=== PATIENT | female | born 1970 | race Caucasian/White ===

== ENCOUNTER → 2017-03-19 | Outpatient (CLI) | payer OTHER | END | disposition home or self-care (01) | LOC: STAR 14:26 | PROVIDERS: ATTEND Obstetrics & Gynecology Maternal & Fetal Medicine | DX: Z01.818 Encounter for other preprocedural examination (principal); R10.2 Pelvic and perineal pain | CPT/HCPCS: 36415; 81001; 84703; 85025; 87086 ==

== ENCOUNTER 2017-03-24 12:16 | Observation (INO) | payer OTHER ==
[~2017-03-24] VITALS: Ht 157.5 cm; Wt 81.0 kg
[2017-03-24] MEDS ORDERED: LACTATED RINGERS 1,000 ML IV SCH (12:41)
[2017-03-24 12:42] VITALS: BP 127/83
[2017-03-24] MEDS ORDERED: NO MEDS PER PT (12:42)
[2017-03-24 13:26] LABS: HCG UR OBC PASS
[2017-03-24] MEDS ORDERED: BUPIVACAINE/PF-EPI 0.25% 1:200K ONE (14:44)
[2017-03-24] MEDS ORDERED: BUPIVACAINE/PF-EPI 0.5% 1:200K ONE (14:44)
[2017-03-24] MEDS ORDERED: FENTANYL PF 250 MCG/5ML ONE (15:19)
[2017-03-24] MEDS ORDERED: MIDAZOLAM 1 MG/ML, 2ML ONE (15:20)
[2017-03-24] MEDS ORDERED: CEFOTETAN 2 GM ONE (15:26)
[2017-03-24] MEDS ORDERED: ROCURONIUM 10 MG/ML ONE (15:26)
[2017-03-24] MEDS ORDERED: ESMOLOL 100 MG/10 ML ONE (15:26)
[2017-03-24] MEDS ORDERED: PROPOFOL 10 MG/ML, 20ML ONE (15:26)
[2017-03-24] MEDS ORDERED: ONDANSETRON 2MG/ML, 2ML ONE (15:26)
[2017-03-24] MEDS ORDERED: DEXAMETHASONE 4 MG/ML, 1ML ONE (15:26)
[2017-03-24] MEDS ORDERED: METOPROLOL 1 MG/ML, 5ML ONE (15:26)
[2017-03-24] MEDS ORDERED: GLYCOPYRROLATE 0.2MG/1ML ONE (15:26)
[2017-03-24] MEDS ORDERED: SUCCINYLCHOLINE 20 MG/ML, 10ML ONE (15:26)
[2017-03-24] MEDS ORDERED: FENTANYL PF 100 MCG/2ML ONE (17:25)
[2017-03-24] MEDS ORDERED: OXYcodone 5 MG/5 ML ORAL.SOL UDC ONE (17:25)
[2017-03-24] MEDS ORDERED: OXYcodone 5 MG/5 ML ORAL.SOL UDC PO PRN (17:30)
[2017-03-24] MEDS ORDERED: MEPERIDINE/PF 25MG/0.5ML IVPush PRN (17:30)
[2017-03-24] MEDS ORDERED: hydrALAzine 20 MG/ML, 1ML IV PRN (17:30)
[2017-03-24] MEDS ORDERED: LABETALOL 5MG/ML, 20ML IV PRN (17:30)
[2017-03-24] MEDS ORDERED: FENTANYL PF 100 MCG/2ML IV PRN (17:30)
[2017-03-24] MEDS ORDERED: HYDROmorphone 1 MG/ML, 1ML IV PRN (17:30)
[2017-03-24] MEDS ORDERED: METOCLOPRAMIDE 5 MG/ML, 2ML IV PRN (17:30)
[2017-03-24] MEDS ORDERED: ACETAMINOPHEN 325 MG TABLET PO PRN (17:30)
[2017-03-24] MEDS ORDERED: ONDANSETRON 2MG/ML, 2ML IVPush PRN ×2 (17:30→20:00)
[2017-03-24] MEDS ORDERED: PROMETHAZINE 25 MG/ML, 1ML IV PRN (17:30)
[2017-03-24] MEDS ORDERED: MIDAZOLAM 1 MG/ML, 2ML IV PRN (17:30)
[2017-03-24 19:30] VITALS: BP 123/73
[2017-03-24] MEDS ORDERED: morphine SULFATE 10 MG/ML, 1ML IVPush PRN ×2 (20:00→21:00)
[2017-03-24] MEDS ORDERED: IBUPROFEN 200 MG TABLET PO PRN (20:00)
[2017-03-24] MEDS: HYDROcodone/APAP 5/325 TABLET PO PRN (22:28)
[2017-03-24 23:59] VITALS: BP 117/71
[2017-03-25] MEDS: D5%-0.45NACL+KCL 20MEQ 1,000 ML IV SCH ×2 (02:57→03:52)
[2017-03-25] MEDS ORDERED: CEFOTETAN PMX 2GM/50ML 50 ML IVPB ONE (03:00)
[2017-03-25 03:11] VITALS: BP 95/61
[2017-03-25] MEDS: HYDROcodone/APAP 5/325 TABLET PO PRN (05:50)
[2017-03-25 08:35] VITALS: BP 97/59
[2017-03-25] MEDS ORDERED: HYDR-3240 PO (09:45)
== END 2017-03-25 10:25 | disposition home or self-care (01) ==
LOC: OUT 12:16 → MERGE 14:30 → 4NOR 18:09 → OUT 18:15 → 4NOR 18:16 → DCLOUNGE 03-25 10:13
PROVIDERS: ADMIT Surgery; ATTEND Surgery
DX: N80.9 Endometriosis, unspecified (principal); N73.6 Female pelvic peritoneal adhesions (postinfective); K66.8 Other specified disorders of peritoneum; N85.6 Intrauterine synechiae; Z80.3 Family history of malignant neoplasm of breast
CPT/HCPCS: 36415; 44970; 58661; 81025; 85025; 88302; 88305; 96365; 96375; G0378; J0330; J1100; J1170; J2250; J2405; J2704; J3010; J3480; S0074; 88304; J3490

== ENCOUNTER 2017-04-11 14:12 | Observation (INO) | payer OTHER ==
[~2017-04-11] VITALS: Ht 157.5 cm; Wt 74.2 kg
[~2017-04-11 14:12] MED LIST: HYDR-3240 PO; NO MEDS PER PT
[2017-04-11] MEDS ORDERED: HYDROmorphone 1 MG/ML, 1ML ONE (14:23)
[2017-04-11] MEDS ORDERED: ONDANSETRON 2MG/ML, 2ML ONE (14:23)
[2017-04-11] MEDS: HYDROmorphone 1 MG/ML, 1ML IVPush PRN ×2 (14:29→22:57)
[2017-04-11] MEDS ORDERED: ONDANSETRON 2MG/ML, 2ML IVPush ONE (14:30)
[2017-04-11] MEDS ORDERED: SODIUM CHLORIDE FLUSH 10ML SYR IVF ONE (14:30)
[2017-04-11] MEDS ORDERED: SODIUM CHLORIDE 0.9% 1,000ML IVBOLUS ONE (14:30)
[2017-04-11 14:44] LABS: BLOOD UREA NITROGEN 9 mg/dL (7-18)
[2017-04-11 14:51] LABS: ASPARTATE AMINO TRANSFERASE 13 U/L (15-37)
[2017-04-11] MEDS ORDERED: OMNIPAQUE 350 MG/ML, 100ML BOTTLE ONE (15:37)
[2017-04-11] MEDS ORDERED: ACET1TAB64 PO (17:13)
[2017-04-11] MEDS ORDERED: NITROGLYCERIN OINT 2%, 1GM TP ONE (17:30)
[2017-04-11] MEDS ORDERED: LEVOFLOXACIN/PMX 750MG/150ML 150 ML IV ONE (17:30)
[2017-04-11] MEDS ORDERED: METRONIDAZOLE PMX 500MG/100ML 100 ML IV ONE (17:30)
[2017-04-11] MEDS ORDERED: LEVOFLOXACIN/PMX 750MG/150ML 150 ML ONE (17:37)
[2017-04-11] MEDS ORDERED: METRONIDAZOLE PMX 500MG/100ML 100 ML ONE (17:37)
[2017-04-11] MEDS ORDERED: PROMETHAZINE 12.5 MG SUPP PR ONE (19:00)
[2017-04-11] MEDS ORDERED: ONDANSETRON 2MG/ML, 2ML IVPush PRN (19:00)
[2017-04-11] MEDS ORDERED: HYDROcodone/APAP 5/325 TABLET PO PRN (19:00)
[2017-04-11] MEDS ORDERED: MORPHINE SULFATE 4 MG/ML, 1ML ONE (19:57)
[2017-04-11 20:00] VITALS: BP 116/76
[2017-04-11 23:14] VITALS: BP 116/76
[2017-04-12] MEDS: LACTATED RINGERS 1,000 ML IV SCH ×3 (00:50→21:52)
[2017-04-12] MEDS: morphine SULFATE 10 MG/ML, 1ML IVPush PRN ×5 (00:50→21:51)
[2017-04-12 01:48] VITALS: BP 85/53
[2017-04-12 01:55] VITALS: BP 96/60
[2017-04-12] MEDS: METRONIDAZOLE PMX 500MG/100ML 100 ML IV SCH ×3 (02:03→18:24)
[2017-04-12 03:12] VITALS: BP 111/72
[2017-04-12 07:10] VITALS: BP 97/62
[2017-04-12] MEDS ORDERED: MIDAZOLAM 1 MG/ML, 5ML ONE (11:36)
[2017-04-12] MEDS ORDERED: NALOXONE 1 MG/ML, 2ML ONE (11:36)
[2017-04-12] MEDS ORDERED: FLUMAZENIL 0.1 MG/1 ML, 5ML ONE (11:36)
[2017-04-12] MEDS ORDERED: FENTANYL PF 100 MCG/2ML ONE (11:36)
[2017-04-12 13:20] VITALS: BP 119/70
[2017-04-12] MEDS ORDERED: LEVOFLOXACIN/PMX 500MG/100ML 100 ML IV SCH (17:30)
[2017-04-12 19:28] VITALS: BP 101/66
[2017-04-13] MEDS: METRONIDAZOLE PMX 500MG/100ML 100 ML IV SCH ×2 (01:27→10:07)
[2017-04-13 02:20] VITALS: BP 101/69
[2017-04-13 08:30] VITALS: BP 118/81
[2017-04-13] MEDS ORDERED: POLYETHYLENE GLYCOL 17 GM PACKET NG ONE (09:00)
[2017-04-13] MEDS: LACTATED RINGERS 1,000 ML IV SCH ×2 (10:07→15:20)
[2017-04-13] MEDS ORDERED: METR500T PO (14:34)
[2017-04-13] MEDS ORDERED: LEVO500T8 PO (14:34)
[2017-04-13] MEDS ORDERED: NAPR500T3 PO (14:35)
[2017-04-13 16:44] VITALS: BP 134/84
== END 2017-04-13 17:30 | disposition home or self-care (01) ==
LOC: ED 16:04 → INTOOBSV 17:16 → EDIP 17:16 → 3NE 19:23
PROVIDERS: ADMIT Obstetrics & Gynecology; ATTEND Obstetrics & Gynecology
DX: T81.89XA Other complications of procedures, not elsewhere classified, initial encounter (principal); R18.8 Other ascites; R10.31 Right lower quadrant pain; D72.829 Elevated white blood cell count, unspecified; Z90.49 Acquired absence of other specified parts of digestive tract; Z90.710 Acquired absence of both cervix and uterus; Y83.8 Other surgical procedures as the cause of abnormal reaction of the patient, or of later complication, without mention of misadventure at the time of the procedure; Y92.89 Other specified places as the place of occurrence of the external cause
CPT/HCPCS: 10030; 36415; 49405; 74177; 80053; 81001; 83690; 84703; 85025; 87086; 96361; 96365; 96366; 96367; 96375; 96376; 99156; 99285; G0378; J1170; J1956; J2250; J2270; J2405; J3010; J7030; J7120; Q9967; J2310

== ENCOUNTER → 2018-07-06 | Outpatient (CLI) | payer OTHER ==
[~2018-07-06] MED LIST changes: +ACET1TAB64 PO; +LEVO500T8 PO; +METR500T PO; +NAPR-685 PO
== END | disposition home or self-care (01) ==
LOC: CFH 07:30
PROVIDERS: ATTEND Family Medicine
DX: Z12.31 Encounter for screening mammogram for malignant neoplasm of breast (principal)
CPT/HCPCS: 77067